=== PATIENT | male | born 1990 | race Caucasian/White ===

== ENCOUNTER 2025-04-07 15:50 | Emergency (ER) | payer SELFPAY ==
[2025-04-07 15:56] VITALS: BP 137/87
--- NOTE | 2025-04-07 17:26 | ED.GENMED ---
History of Present Illness
General
Chief Complaint: Overdose Intentional
Source: patient
Exam Limitations: none
Time Seen by Provider: 04/07/25 16:50
Nursing documentation reviewed up to this point in time: agreed with
History of Present Illness
History of Present Illness:
Patient to ED at the request of his father. He states that he overdosed on IV/snorting Ketamine yesterday. Found by his father who called 911. He as evaluated at [facility] and eventually discharged home. He states he has used Ketamine for the past 3
day. He has a history of drug abuse. States he has not used opioids x 2 years. Has medical marijuana card and uses daily. He was told by his father that he needed to come to the ED here today 'to be cleared' otherwise father is 'pressing
charges'. Patient is alert and cooperative, agrees to speak with [facility]. Denies drug use today
Past History
Past History
ED Past Medical History: HTN and Hypothyroidism
Social History
Tobacco: Non-smoker
Alcohol: None
Drug: Marijuana and Other (History of IVDA. Off opioids x 2 years. Used ketamine for the past 3 days (IV and snorting))
Personal: Single
Living: with family (Lives with father.)
Review of Systems
Review of Systems
Allergies reviewed?: Yes
All Other Systems: ROS reviewed and negative except as documented in HPI and ROS
Constitutional: Reports no symptoms
EENT: Reports no symptoms
Respiratory: Reports no symptoms
Cardiac: Reports no symptoms
ABD/GI: Reports no symptoms
: Reports no symptoms
Musculoskeletal: Reports no symptoms
Skin: Reports no symptoms
Neurological: Reports no symptoms
Psychiatric: Reports no symptoms
Phy Exam
General Physical Exam
General Presentation: well appearing and no apparent distress
General age: appears stated age
General Skin: warm and dry
Eye Exam
Eye Exam: PERRL and EOMI
Neurological Exam
Neurological Exam: alert, oriented x3, no motor deficits, no sensory deficits, speech normal and normal gait
Musculoskeletal Exam
Musculoskeletal Exam: full ROM
Skin Exam
Skin Exam: normal color and warm/dry
Psychiatric Exam
Psychiatric Exam: normal mood/affect
Course
Vital Signs
Initial and Last Documented VS:
Initial Vital Signs
Temp Pulse Resp BP Pulse Ox
98.1 F 119 20 137/87 96
04/07/25 15:56 04/07/25 15:56 04/07/25 15:56 04/07/25 15:56 04/07/25 15:56
Last Documented Vital Signs
Temp Pulse Resp BP Pulse Ox
98.1 F 119 16 137/87 96
04/07/25 15:56 04/07/25 15:56 04/07/25 17:30 04/07/25 15:56 04/07/25 15:56
*Critical Care Note
Total Time (30-74mins, 75-104mins- exclusive of procedures): Not Applicable
Update Note
Update Note:
Patient and father met with [facility]. Given follow up resources by [facility] and cleared for discharge.
ED Attending Note
-
Portions of this chart may have been created with voice recognition software.� Occasional wrong word or��sound alike� substitutions may have occurred due to the inherent limitations of voice recognition software.
Discharge Plan
Departure
Patient Disposition: Home (Routine Discharge)
Date of Disposition: 04/07/25
Time of Disposition: 18:34
Patient with high blood pressure during this ER visit?: No
Condition: Good
Covid-19: Not Applicable
Discharge Problem:
Drug abuse and dependence
Instructions: Substance use disorder - ED discharge instructions
Interventions
Interventions:
*Risk Screen - Suicide Last Done: 04/07/25 16:00
*General Assessment Last Done: 04/07/25 15:56
*ED- Fall Risk Assessment Last Done: 04/07/25 17:20
*ED COVID-19 Vaccine History Last Done: 04/07/25 17:20
ED- Cardiac Assessment Last Done: 04/07/25 17:29
ED- Neurological Assessment Last Done: 04/07/25 17:29
ED-Psychological Assessment Last Done: 04/07/25 17:29
ED- Pulmonary Assessment Last Done: 04/07/25 17:29
Discharge Date and Time
Print Language: AZERI
--- NOTE | 2025-04-07 19:10 | EDRN ---
Discharged by MOHAN Fisher, taken off bedboard by me.
== END 2025-04-07 19:11 | disposition home or self-care (01) ==
LOC: EMR 15:50
PROVIDERS: EMERGENCY PHYSICIAN Emergency Medicine
DX: F19.20 Other psychoactive substance dependence, uncomplicated (principal); E03.9 Hypothyroidism, unspecified; I10 Essential (primary) hypertension
CPT/HCPCS: 99282